=== PATIENT | male | born 1970 | race Caucasian/White ===

== ENCOUNTER 2016-12-09 20:28 | Emergency (ER) | payer MEDICARE, OTHER | END 2016-12-09 23:18 | disposition home or self-care (01) | LOC: ER 20:28 | DX: K04.7 Periapical abscess without sinus (principal); R68.84 Jaw pain; Z79.899 Other long term (current) drug therapy; Z88.5 Allergy status to narcotic agent | CPT/HCPCS: 96372; 99282-25; 99283 ==